=== PATIENT | female | born 1985 | race Caucasian/White ===

== ENCOUNTER 2022-08-01 08:04 | Emergency (ER) | payer BC, SELFPAY ==
[2022-08-01 08:12] VITALS: BP 151/86; PULSE 111; RESP 20; TEMP 36.5; O2SAT 100
--- NOTE | 2022-08-01 08:27 | ED.GENADULT ---
HPI - General Adult General Chief complaint: Upper Respiratory Infection Stated complaint: Cough Source: patient Mode of arrival: ambulatory Limitations: no limitations History of Present Illness HPI narrative: Patient presents for evaluation of cough for the last 3 weeks. She states her symptoms were getting better and then worse in the last 2 days. Cough is nonproductive. She denies any fever, chills, shortness of breath, leg swelling, nausea, vomiting, diarrhea. She is currently , 36 weeks gestation. . She saw her OBGYN two days ago. She has been using benadryl and cough drops. She is wondering if any other therapies are available. She does not smoke. No personal hx of COVID. She has received COVID vaccination. 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 No additional complaints or concerns. Related Data Home Medications Medication Instructions Recorded Confirmed albuterol sulfate 90 mcg/actuation inhalation 08/01/22 aerosol inhaler doxylamine 20 mg-pyridoxine 20 mg tablet PO 08/01/22 tablet,immediate and delayed release ([place]) nifedipine 30 mg tablet,extended mg PO 08/01/22 release 24 hr Allergies Allergy/AdvReac Type Severity Reaction Status Date / Time No Known Allergies Allergy Verified 08/01/22 08:24 Review of Systems Review of Systems: CONSTITUTIONAL: Denies fever, chills, or sweats. EYES: Denies visual changes, redness, or discharge. ENT: Denies rhinorrhea, congestion, sore throat, or otalgia. CARDIOVASCULAR: Denies chest pain, palpitations, or edema. RESPIRATORY: Reports cough. Denies dyspnea. GASTROINTESTINAL: Denies abdominal pain, nausea, vomiting, or diarrhea. GENITOURINARY: Denies dysuria or hematuria. SKIN: Denies rash or itching. MUSCULOSKELETAL: Denies back pain, joint pain, or myalgia. NEUROLOGIC: Denies headache, numbness, dizziness, or weakness. PSYCHIATRIC: Denies anxiety or depression. [facility] Past Medical History Medical History Gestational hypertension Obesity Surgical History Surgical History History of cholecystectomy History of tonsillectomy Family History Family History Father Seizures Meningitis Social History Social History Smoking status: Never smoker Substance use: never Additional living arrangements comments: Lives with boyfriend Gender identity (if verbalized by the patient): Female Sexual Orientation (if Verbalized by the Patient): Straight or Heterosexual Spiritual care concerns: No Exam Narrative: GENERAL: Well-appearing, well-nourished, and in no acute distress. HEAD: Normocephalic, atraumatic. EYES: PERRLA and EOMI. ENT: Nares clear, no rhinorrhea or epistaxis. Mucous membranes moist. Oropharynx without tonsillar hypertrophy exudate or other lesions. Bilateral TMs pearly lieberman nonbulging NECK: Supple. No adenopathy or masses. No carotid bruits or JVD CHEST: Cough present on exam. Clear to auscultation. No respiratory distress. No wheezes rales or rhonchi HEART: Regular rate and rhythm. No murmur heard. Normal peripheral pulses. ABDOMEN: Soft, nontender, nondistended, normal active bowel sounds. EXTREMITIES: Normal range of motion. No edema. SKIN: Warm, dry, no rash. NEURO: No focal deficits. Alert and oriented x3. PSYCH: Normal mood and affect. Course Course Emergency Course: This is a 36-year-old female who presented for evaluation of respiratory symptoms. COVID and influenza were negative. HR normalized on my exam. Doubt PE-has normal HR, no leg swelling and O2 sats 100%. She may use guaifenesin for cough and should reserve dextromethorphan for severe symptoms. Should not use liquid formulation of either medication due to potential to elevate BP
== END 2022-08-01 08:53 | disposition home or self-care (01) ==
PROVIDERS: Emergency Provider Nurse Practitioner
DX: B34.9 Viral infection, unspecified (principal); Z20.822 Contact with and (suspected) exposure to COVID-19
CPT/HCPCS: 87426; 87804; 99213; C9803; G0463

== ENCOUNTER 2023-05-17 14:46 | Emergency (ER) | payer BC, OTHER, SELFPAY ==
[2023-05-17 14:56] VITALS: BP 142/85; PULSE 83; RESP 16; TEMP 36.5; O2SAT 98
--- NOTE | 2023-05-17 15:14 | ED.GENADULT ---
HPI - General Adult General Chief complaint: Extremity Injury, Lower Stated complaint: Left Ankle Pain Source: patient Mode of arrival: ambulatory Limitations: no limitations History of Present Illness HPI narrative: 37-year-old female presented for complaint of left ankle pain today. She sources intermittent ankle pain when she wears sandals, stating she wore them today and due to being overweight the ankle feels unstable and has pain. 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 Denies bruising, swelling, discoloration, numbness, tingling or weakness. Related Data Allergies Allergy/AdvReac Type Severity Reaction Status Date / Time No Known Allergies Allergy Verified 08/01/22 08:24 Review of Systems Review of Systems: CONSTITUTIONAL: Denies body aches, fever, chills EYES: Denies visual changes ENT: Denies rhinorrhea, congestion CARDIOVASCULAR: Denies chest pain, palpitations, or edema. RESPIRATORY: Denies cough or dyspnea. GASTROINTESTINAL: Denies abdominal pain, nausea, vomiting, or diarrhea. SKIN: Denies rash, itching, or wounds. MUSCULOSKELETAL: reports left ankle pain Denies back pain, or myalgia. NEUROLOGIC: Denies headache, numbness, tingling, or weakness. PSYCH: Denies depression or anxiety. All systems reviewed & are unremarkable except as noted in HPI and below PMFSH Past Medical History Medical History Gestational hypertension Obesity Surgical History Surgical History History of cholecystectomy History of tonsillectomy Family History Family History Father Seizures Meningitis Social History Social History Smoking status: Never smoker Substance use: never Additional living arrangements comments: Lives with boyfriend Gender identity (if verbalized by the patient): Female Sexual Orientation (if Verbalized by the Patient): Straight or Heterosexual Spiritual care concerns: No Comments At time of signature, I have reviewed and agree with nursing past medical, surgical, social and family history unless otherwise noted. Please see nursing chart for further information. There is no relevant family history pertinent to the presenting complaint Exam Narrative: GENERAL: Well-appearing NECK: Supple. CHEST: Speaks in full sentences. No respiratory distress. HEART: Regular rate and rhythm. Normal and equal peripheral pulses. EXTREMITIES: Reports pain to left lateral/posterior ankle; Left ankle and foot have normal strength and sensation, normal range of motion with flexion/extension/rotation, denies pain with movement. No ecchymosis, No point tenderness. No open wounds, or obvious deformity; alignment normal, pulse palpable and equal bilaterally, skin warm, dry, pink. Capillary refill less than 3 seconds. SKIN: Warm, dry, no rash. NEURO: Alert and oriented x3. PSYCH: Normal mood and affect Course Course Emergency Course: Patient is aware of diagnosis, understands and agrees to treatment plan. Anticipatory guidance given. Patient agrees to follow-up as directed and is aware of reasons to seek care at the emergency department. Portions of this record may have been created with voice recognition software Level of Care: Express Care Visit Vital Signs Vital signs: Vital Signs Temperature 97.7 F 05/17/23 14:56 Pulse Rate 83 05/17/23 14:56 Respiratory Rate 16 05/17/23 14:56 Blood Pressure 142/85 H 05/17/23 14:56 Pulse Oximetry 98 05/17/23 14:56 Oxygen Delivery Room Air 05/17/23 14:56 Temperature 97.7 F 05/17/23 14:56 Pulse Rate 83 05/17/23 14:56 Respiratory Rate 16 05/17/23 14:56 Blood Pressure 142/85 H 05/17/23 14:56 Pulse Oximetr
== END 2023-05-17 15:23 | disposition home or self-care (01) ==
PROVIDERS: Emergency Provider Nurse Practitioner Family
DX: M25.572 Pain in left ankle and joints of left foot (principal); E66.9 Obesity, unspecified
CPT/HCPCS: 99212; G0463

== ENCOUNTER 2023-06-29 12:57 | Emergency (ER) | payer OTHER, SELFPAY ==
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
[2023-06-29 13:19] VITALS: BP 150/72; PULSE 92; RESP 20; TEMP 36.8; O2SAT 100
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
== END 2023-06-29 14:15 | disposition home or self-care (01) ==
PROVIDERS: Emergency Provider Nurse Practitioner Family
DX: M79.18 Myalgia, other site (principal)
CPT/HCPCS: 72072; 73030; 81025; 99214; G0463

== ENCOUNTER 2025-03-27 18:04 | Emergency (ER) | payer BC, SELFPAY ==
--- OUTSIDE RECORDS SUMMARY | 2025-03-27 18:07 | XMS_ITS | Encounter Summary ---
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
--- OUTSIDE RECORDS SUMMARY | 2025-03-27 18:07 | XMS_ITS | Clinical Summary ---
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
--- OUTSIDE RECORDS SUMMARY | 2025-03-27 18:07 | XMS_ITS | Continuity of Care Document ---
Author Organization [facility] Address [address] [place] [address] Phone Care Team Providers Care Offshore Wind Operations Manager Name Role Phone Jared LEMUS, C Unavailable Unavailable Allergies, Adverse Reactions, Alerts Substance Reaction Status Criticality Penicillins family hx of Active No Information acetaminophen Nausea / Vomiting Active No Inform ation OXYCODONE HCL Nausea / Vomiting Active No Inform ation Medications Medication Instructions Dosage Effective Dates (start - stop) Status Comments Prozac 10 mg capsule take 1 capsule by ORAL route every day 10 MG - Active Ortho Tri-Cyclen (28) 0.18/0.215/0.25 mg-35 mcg(28) Tab take 1 tablet by oral route every day 1.00 tablet - Active albuterol sulfate HFA 90 mcg/actuation Aerosol Inhaler inhale 2 puff by Inhalation route every 4 - 6 hours as needed 2 puff - Active Procedures Procedure Date OFFICE/OUTPATIENT VISIT, EST OFFICE/OUTPATIENT VISIT, EST OFFICE/OUTPATIENT VISIT, EST PREV VISIT, EST, AGE 18-39 OFFICE/OUTPATIENT VISIT, EST OFFICE/OUTPATIENT VISIT, EST ROUTINE VENIPUNCTURE PREV VISIT, EST, AGE 18-39 OFFICE/OUTPATIENT VISIT, EST OFFICE/OUTPATIENT VISIT, EST IMMUNIZATION ADMIN FLU VACCINE AGE 3 & OVER, IM PREV VISIT, EST, AGE 18-39 OFFICE/OUTPATIENT VISIT, EST Urinalysis Nonauto W/O Scope OFFICE/OUTPATIENT VISIT, EST OFFICE/OUTPATIENT VISIT, EST PREV VISIT, EST, AGE 18-39 OFFICE/OUTPATIENT VISIT, EST PERCUTANEOUS NEEDLE BIOPSY, MUSCLE/ASP J OFFICE CONSULTATION ROUTINE VENIPUNCTURE OFFICE/OUTPATIENT VISIT, EST OFFICE/OUTPATIENT VISIT, EST OFFICE/OUTPATIENT VISIT, EST ROUTINE VENIPUNCTURE TB INTRADERMAL TEST TB INTRADERMAL TEST Ther/Proph/Diag Inj, Sc/Im IMMUNIZATION ADMIN H PAPILLOMA VACC 3 DOSE IM OFFICE/OUTPATIENT VISIT, EST IMMUNIZATION ADMIN H PAPILLOMA VACC 3 DOSE IM PREV VISIT, EST, AGE 18-39 IMMUNIZATION ADMIN H PAPILLOMA VACC 3 DOSE IM OFFICE/OUTPATIENT VISIT, EST OFFICE/OUTPATIENT VISIT, EST PREV VISIT, EST, AGE 18-39 IMMUNIZATION ADMIN TDAP VACCINE >7 IM Advance Directives Directive Yes / No Effective Date File Name No Information Encounters Encounter Description Practice Location Reason(s) For Visit Diagnoses Date Provider Providers Copied on Encounter [facility], [address], [place], [place], [facility], tel:[phone] [facility] No Information 4 Jared Martinez [address] [facility], [address], [place], [place], [facility], . tel:[phone] OFFICE/OUTPAT IENT VISIT, EST [facility], [address], [place], [address], [place] tel:[phone] [facility] chronic conditions (chief complaint)N urse Comments (chief complaint) Obesity, MorbidChroni c Fatigue Syndrome 3 Dave Deshpande [facility] [address], [place], [address], [place]. tel:[phone] [facility], [address] [address], [place], [address], [place] tel:[phone] [facility] Tobacco Abuse, History of 3 Stephen Quiñones. [address], [address], [place], [address], [place]. tel:[phone] OFFICE/OUTPAT IENT VISIT, EST [facility], [address] [place] [address] [address] [address], [place], [address], [place] tel:[phone] [facility] f/u per AT (chief complaint)c hronic conditions (chief complaint) DEPRESSIVE DISORDER, NOSFatigue / Malaise 3 Dave Deshpande [facility] [address], [place], [address], [place]. tel:[phone] [facility], [address] [place] [address], [place], [address], [place] tel:[phone] [facility] anxiety (chief complaint) Chronic Fatigue Syndrome 3 [address], [place], [address], [place]. tel:[phone] PREV VISIT, EST, AGE 18-39 [facility], [address] [address], [place], [address], [place] tel:[phone] [facility] preventive exam (chief complaint) Gynecologica l Examination 2 Jared C. [address], [address], [place], [address], [place]. tel:[phone] OFFICE/OUTPAT IENT VISIT, EST [facility], [address] [address], [place], [address], tel: [phone] [facility] knee pain (chief complaint) Pain, Knee Dec- 5 2 PauchMcNama ra Vanesa. [address], [address], [place], [place], [id number], . tel: [phone] OFFICE/OUTPAT IENT VISIT, EST [facility], [address] [address], [place], [address], [place] tel: [phone] [facility] cyst (chief complaint) DERMATITIS NOSGynecolog ical Examination Aug- 1 Nick Rima. [address], [address] [facility], [place], [place], [id number], . tel: [phone] PREV VISIT, EST, AGE 18-39 [facility], [address] [address], [place], [address], [place] tel: [phone] [facility] physical exam (chief complaint) Gynecologica l ExaminationL UMP OR MASS IN BREASTDepres sionObesity 1 Nick Rima[address], [address] [facility], [place], [place], [id number], . tel: [phone] OFFICE/OUTPAT IENT VISIT, EST [facility], [address] [address], [place], [address], [place] tel: [phone] [facility] depression (chief complaint) Fatigue / MalaiseDepre ssion Dec- 1 Nick Rima[address], [address] [facility], [place], [place], [id number], [place]. tel: [phone] OFFICE/OUTPAT IENT VISIT, EST [facility], [address] [address], [place], [address], [place] tel: [phone] [facility] medical problem update (chief complaint)a nxiety (chief complaint) DepressionOb esity Oct- 1 Nick Petersona. [address] [facility] , [address] [facility], [place], [place], [id number], . tel:[phone] [facility], [address] [address], [place], [address], tel:[phone] [facility] DYSMENORRHEA Dec-0 2 0 No Information PREV VISIT, EST, AGE 18-39 [facility], [address] [place] [address], [place], [address], tel:[phone] [facility] CPX (chief complaint) Gynecologica l ExaminationI nfluenza VaccineObesi tyOther malaise and fatigue Jul-0 0 No Information OFFICE/OUTPAT IENT VISIT, EST [facility], [address] [place] [address], [place], [facility], tel:[phone] [facility] discuss wt loss (chief complaint) Other malaise and fatigue Feb- 0 Wil Cotter. [address] [place] [address], [facility], . tel:[phone] [facility], [address] [place] [address], [place], [facility], [place] tel:[phone] [facility] Nephrolithia sis, Kidney StoneNephrol ithiasis, Kidney Stone Nov-2 0 Wil Cyndee. [address] [place] [address], [address], [place]. tel:[phone] OFFICE/OUTPAT IENT VISIT, EST [facility], [address] [place] [address], [place], [facility], tel:[phone] [facility] hip pain (chief complaint)U TI (chief complaint) Pain, Low Back Nov- 0 Wil Cyndee. [address] [place] [address], [address], [place]. tel:[phone] OFFICE/OUTPAT IENT VISIT, EST [facility], [address] [place] [address], [place], [address], [place] tel:[phone] [facility] knee pain (chief complaint)s ore throat (chief complaint)b lood in stool (chief complaint) Pain, KneeBleeding , RectalAcute pharyngitis 9 Wil Cyndee. [address] [place] [address], [address], [place]. tel:[phone] [facility], [address] [place] [address], [place], [address], [place] tel:[phone] [facility] No Information 9 Jared C. [address] [place] [address], [address], [place], [address], [place]. tel:[phone] PREV VISIT, EST, AGE 18-39 [facility], [address] [place] [address], [place], [address], [place] tel:[phone] [facility] PAP test (chief complaint) Gynecologica l Examination 9 No Information OFFICE/OUTPAT IENT VISIT, EST [facility], [address] [facility] [address] [facility], [place], [address], [place] tel:[phone] [facility] [place] No Information 9 Maniar Anoli. [address] [facility], [address] [facility], [place], [place], [id number], [place]. tel:[phone] Referring Provider: Vanesa Parekh, [address] [place] [address] [address], [place], [address]. tel:[phone] OFFICE CONSULTATION [facility] [address] [facility] [address], [place], [address], [place] tel:[phone] [facility] [place] No Information Blair-2 3-200 9 Jess Christian. [address], [address] [facility], [place], [place], [id number], [place]. tel:[phone] Referring Provider: Vanesa Parekh, [address], [place], [address]. tel:[phone] OFFICE/OUTPAT IENT VISIT, EST [facility], [address] [address], [place], [address], [place] tel:[phone] [facility] swollen lymph nodes (chief complaint) Lymphadenopa thy, Swollen Glands Blair-1 8-200 9 Dina Alexis. [address], [address], [place], [place], [id number], [place]. tel: [phone] OFFICE/OUTPAT IENT VISIT, EST [facility], [address] [address], [place], [address], [place] tel: [phone] [facility] lump (chief complaint) Lymphadenopa thy, Swollen Glands Apr-2 8-200 9 No Information OFFICE/OUTPAT IENT VISIT, EST [facility], [address] [facility] [address] [address], [place], [address], [place] tel:[phone] [facility] lump (chief complaint) Lymphadenopa thy, Swollen Glands Apr-0 6-200 9 Dina Alexis. [address], [address], [place], [place], [id number], [place]. tel: [phone] [facility], [address] [facility], [place], [address], [place] tel:[phone] [facility] No Information Oct- 8-200 9 Jared C. [address], [address] [facility], [place], [facility], . tel: [phone] [facility], [address] [place] [address], [place], [facility], tel: [phone] [facility] No Information Fe 9 Jared C. [address], [address] [facility], [place], [facility], . tel: [phone] [facility], [address] [place] [address], [place], [facility], tel: [phone] [facility] No Information 8 Jared C. [address] [place] [address], [address] [facility], [place], [facility], . tel: [phone] OFFICE/OUTPAT IENT VISIT, EST [facility], [address] [place] [address], [place], [facility], tel: [phone] [facility] abdominal discomfort (chief complaint) HEARTBURN 8 No Information [facility], [address] [place] [address], [place], [facility], tel: [phone] [facility] No Information 8 Jared C. [address] [place] [address], [address], [place], [facility], [place]. tel: [phone] PREV VISIT, EST, AGE 18-39 [facility], [address] [place] [address] [address] [address], [place], [facility], [place] tel: [phone] [facility] PAP test (chief complaint) Routine gynecologica l examination 8 No Information OFFICE/OUTPAT IENT VISIT, EST [facility], [address] [place] [address] [address] [address], [place], [facility], tel: [phone] [facility] No Information Nov-0 5-200 7 Jared C. [address], [address] [facility], [place], [facility], . tel:[phone] OFFICE/OUTPAT IENT VISIT, EST [facility], [address] [facility], [place], [facility], tel:[phone] [facility] No Information Blair-0 5-200 7 Jared C. [address], [address] [facility], [place], [facility], . tel:[phone] PREV VISIT, EST, AGE 18-39 [facility], [address] [address], [place], [facility], tel:[phone] [facility] No Information Mar-3 0-200 7 Jared C. [address], [address] [facility], [place], [facility], . tel:[phone] [facility], [address] [place] [address], [address] [address], [place], [facility], tel:[phone] [place] [address] No Information 1 8-199 1 Nurse Services. [address] [place] [address], [address] [place] [address], . tel:[phone] [facility], [address] [place] [address], [address] [address], [place], [facility], tel:[phone] [facility] [place] No Information 6-198 9 Nurse Services. [address] [place] [address], [address] [place] [address], . tel:[phone] [facility], [address] [place] [address], [address] [address], [place], [facility], tel:[phone] [facility] [place] No Information May-2 7-198 8 Nurse Services. [address] [place] [address], [address] [place] [address], . tel:[phone] [facility], [address] [place] [address], [address], [address] [place] [address] tel:[phone] [facility] [place] No Information 2 8-198 8 Nurse Services. [address] [place] [address], [id number], . tel:[phone] [facility], [address] [place] [address], [address], [facility], tel:[phone] [facility] [place] No Information Nov- 0-198 7 Nurse Services. [address] [place] [address], [id number], . tel:[phone] [facility], [address] [place] [address], [address], [facility], tel:[phone] [facility] [place] No Information 7-198 6 Nurse Services. [address] [place] [address], [id number], . tel:[phone] [facility], [address] [place] [address], [address], [facility], tel:[phone] [facility] [place] No Information 9-198 6 Nurse Services. [address] [place] [address], [id number], . tel:[phone] Family History Family Member Type Diagnosis Age At Onset Mother Problem (finding) hypertension Paternal grandfather Problem (finding) coronary arteri osclerosis Maternal grandmother Problem (finding) supranuclear pa lsey Sister Problem (finding) attention defi cit hyperactivity disorder Problem (finding) Family history of Cancer -cervical Father Problem (finding) seizure disorder Mother Problem (finding) depression Problem (finding) Family history of Cance r -breast Problem (finding) Family history of Diabetes mellitus Problem (finding) Family history of depression with suicide attemp Immunizations Vaccine Date Status Comments Flu (split) (3 yrs or older) administered Source: New Immunization Record HPV administered Source: New Imm unization Record HPV administered Source: New Imm unization Record HPV administered Source: New Imm unization Record Td (adult) administered Source: New Imm unization Record TDAP VACCINE >7 IM administered Source: N ew Immunization Record meningococcal administered Source: New Im munization Record hep B (ped/adol, 3 dose) administered Bianca rce: New Immunization Record hep B (ped/adol, 3 dose) administered Bianca rce: New Immunization Record hep B (ped/adol, 3 dose) administered Bianca rce: New Immunization Record Oral Polio administered Source: New Imm unization Record DPT/DTaP administered Source: New Imm unization Record MMR administered Source: New Imm unization Record Hib administered Source: New Imm unization Record Oral Polio administered Source: New Imm unization Record DPT/DTaP administered Source: New Imm unization Record Oral Polio administered Source: New Imm unization Record DPT/DTaP administered Source: New Imm unization Record DPT/DTaP administered Source: New Imm unization Record Oral Polio administered Source: New Imm unization Record DPT/DTaP administered Source: New Imm unization Record Payers Payer name Insurance type Covered alliance party ID Authoriza tion(s) [facility] [id number] Social History Type Description Quantity Date Captured Comments Sex Female Smoking Status No Information Chief Complaint And Reason For Visit No Information Reason For Referral Reason For Referral No Information Plan Of Treatment Date Type Action Status Goal Breast exam. Due on 012 due Goal PAP. Due on due Goal Preventive Exam. Due on due Goal PUBLIC HEALTH TRAINING ASSISTANT exam. Due on due Goal Diabetes Screening. Due on D due History Of Present Illness Encounter Date Complaint History Of Prese nt Illness No Information Functional Status Date Functional Assessmen t No Information Instructions Date Instruction Additional Infor mation Dietary counseling Related to Mo rbid obesity, BMI 40 or more Decrease caloric intake Related to Morbid obesity, BMI 40 or more Assessments Type Assessment Date No Information Patient Care Teams Name Effective Dates (start - stop) Status Members No Information
--- OUTSIDE RECORDS SUMMARY | 2025-03-27 18:07 | XMS_ITS | Encounter Summary ---
Author Organization [facility] Healthcare Address [address] [place] [address] Care Team Providers Care Publicity Consultant Name Role Phone Emily Mcgill NP Primary Care Provider [phone] Reason for Visit * Reason Onset Date Comments Medical Question/Miscellaneous 03/25/2025 Encounter Details Date Type Department Care Team (Late st Contact Info) Description 03/25/2025 Telephone [facility] [address] [place] [address] Emily Mcgill NP [address] [place] [address] Medical Question/Miscellaneous Social History Tobacco Use Types Packs/Day Years Used Date Smoking Tobacco: Never Smokeless Tobacco: Never [facility] Utilities Answer Date Recorded In the past 12 months has [facility] electric, gas, oil, or water [employer] threatened to shut off services in your home? No 11/14/2023 Humiliation, Afraid, Rape, and Kick questionnair e Answer Date Recorded Within the last year, have y ou been afraid of your partner or ex-partner? No 11/14/2023 Within the last year, have y ou been humiliated or emotionally abused in other ways by your partner or ex-partner? No Within the last year, have y ou been kicked, hit, slapped, or otherwise physically hurt by your partner or ex-partner? No 11/14/2023 Within the last year, have y ou been raped or forced to have any kind of sexual activity by your partner or ex-partner? No 11/14/2023 Social Connection and Isolat ion Panel [NHANES] Answer Date Recorded In a typical week, how many times do you talk on the phone with family, friends, or neighbors? More than three times a week 11/14/2023 How often do you get togethe r with friends or relatives? More than three times a week 11/14/2023 How often do you attend chur ch or caodaism services? Never 11/14/2023 Do you belong to any clubs o r organizations such as taoism groups, unions, fraternal or athletic groups, or school groups? No 11/14/2023 How often do you attend meet ings of the clubs or organizations you belong to? Never 11/14/2023 Are you , , di vorced, , never , or living with a partner? Living with partner 11/14/2023 AUDIT-C Answer Date Recorded Q1: How often do you have a drink containing alcohol? Never 08/02/2024 Q2: How many drinks containi ng alcohol do you have on a typical day when you are drinking? Patient does not drink Q3: How often do you have si x or more drinks on one occasion? Never 08/02/2024 Overall Financial Resource Strain (CARDIA) Answe r Date Recorded How hard is it for you to pa y for the very basics like food, housing, medical care, and heating? Not hard at all 11/14/2023 PHQ-2 Answer Date Recorded PHQ-2 Total Score (If total score is 3 or more points, staff should administer the PHQ-9) 0 10/02/2024 [facility] - Occupational Stress Questionnaire Answer Date Recorded Do you feel stress - tense, restless, nervous, or anxious, or unable to sleep at night because your mind is troubled all the time - these days? To some extent 11/14/2023 Exercise Vital Sign Answer Date Recorde d On average, how many days pe r week do you engage in moderate to strenuous exercise (like a brisk walk)? 0 days 11/14/2023 On average, how many minutes do you engage in exercise at this level? 0 min 11/14/2023 Hunger Vital Sign Answer Date Recorded Within the past 12 months, y ou worried that your food would run out before you got the money to buy more. Never true 11/14/19 24 Within the past 12 months, t he food you bought just didn't last and you didn't have money to get more. Never true 11/14/2023 PRAPARE - Transportation Answer Date Re corded In the past 12 months, has l ack of transportation kept you from medical appointments or from getting medications? No 10/27 In the past 12 months, has l ack of transportation kept you from meetings, work, or from getting things needed for daily living? No 11/14/2023 Housing Stability Vital Sign Answer Humble e Recorded In the last 12 months, was t here a time when you were not able to pay the mortgage or rent on time? No 11/14/2023 In the last 12 months, how many places have you lived? 1 11/14/2023 In the last 12 months, was t here a time when you did not have a steady place to sleep or slept in a [place] [facility] (including now)? No 11/14/2023 Personal Safety Answer Date Recorded Have you ever been in or are you currently in a harmful physical or emotional relationship or is someone making you feel afraid or unsafe? Denies 07/11/2024 Comments No Sex and Gender Information Value Date Recorded Sex Assigned at Not on file Legal Sex Female 8:29 AM CDT Gender Identity Not on file Sexual Orientation Not on file documented as of this encounter Miscellaneous Notes * Telephone Encounter - Meryl Winkler MA - 03/25/2025 1:52 PM CDT Noted, Thanks * Telephone Encounter - Jaqui Bird - 03/25/2025 12:44 PM CDT Medical Question/Miscellaneous Caller???s Concern: Patient asking if she needs to continue Physical Therapy. AC reviewed notes andtold patient that the note from [facility] is not on file. Patient is going to contact [facility] to have them fax the last visit notes to KINDRA Mcgill for her review. Does message need to be routed? Yes-FYI Only documented in this encounter Plan of Treatment Not on file documented as of this encounter Visit Diagnoses Not on filedocumented in this encounter Care Teams Publicity Consultant Relationship Specialty Start Date End Date Emily Mcgill NP PCP - General Family Medicine 11/14/23 documented as of this encounter
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
--- OUTSIDE RECORDS SUMMARY | 2025-03-27 18:09 | XMS_ITS | Continuity of Care Document ---
Author Organization [facility] Address 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 tel:[phone] OFFICE/OUTPAT IENT VISIT, EST [facility], [address], [place], [address], [place] tel:[phone] [facility] chronic conditions (chief complaint)N urse Comments (chief complaint) Obesity, MorbidChroni c Fatigue Syndrome 3 Dave Deshpande [facility] [address], [place], [address], [place]. tel:[phone] [facility], [address] [address], [place], [address], [place] tel:[phone] [facility] Tobacco Abuse, History of 3 Stephen Quiñones. [address], [address], [place], [address], [place]. tel:[phone] OFFICE/OUTPAT IENT VISIT, EST [facility], [address] [place] [address] [place] [address], [place], [address], [place] tel:[phone] [facility] f/u per AT (chief complaint)c hronic conditions (chief complaint) DEPRESSIVE DISORDER, NOSFatigue / Malaise 3 Dave Deshpande [facility] [address], [place], [address], [place]. tel:[phone] [facility], [address] [place] [address], [place], [address], [place] tel:[phone] [facility] anxiety (chief complaint) Chronic Fatigue Syndrome 3 Tang Durb[address], [place], [address], [place]. tel:[phone] PREV VISIT, EST, AGE 18-39 [facility], [address] [address], [place], [address], [place] tel:[phone] [facility] preventive exam (chief complaint) Gynecologica l Examination 2 Jared C. [address], [address], [place], [address], [place]. tel:[phone] OFFICE/OUTPAT IENT VISIT, EST [facility], [address] [address], [place], [address], tel: [phone] [facility] knee pain (chief complaint) Pain, Knee Dec- 5 2 PauchMcNama ra Vanesa. [address], [address] [place] [facility], [place], [place], [id number], . tel: [phone] OFFICE/OUTPAT IENT VISIT, EST [facility], [address] [address], [place], [address], [place] tel: [phone] [facility] cyst (chief complaint) DERMATITIS NOSGynecolog ical Examination Aug- 1 Nick Rima. [address], [address] [facility], [place], [place], [id number], . tel: [phone] PREV VISIT, EST, AGE 18-39 [facility], [address] [address], [place], [address], [place] tel: [phone] [facility] physical exam (chief complaint) Gynecologica l ExaminationL UMP OR MASS IN BREASTDepres sionObesity 1 Nick Rima[address], [address] [facility], [place], [place], [id number], . tel: [phone] OFFICE/OUTPAT IENT VISIT, EST [facility], [address] [address], [place], [address], [place] tel: [phone] [facility] depression (chief complaint) Fatigue / MalaiseDepre ssion Dec- 1 Nick [address]ima[address], [address] [facility], [place], [place], [id number], [place]. tel: [phone] OFFICE/OUTPAT IENT VISIT, EST [facility], [address] [address], [place], [address], [place] tel: [phone] [facility] medical problem update (chief complaint)a nxiety (chief complaint) DepressionOb esity Oct- 1 Nick Petersona. [address] [facility] , [address] [facility], [place], [place], [id number], . tel:[phone] [facility], [address] [address], [place], [address], tel:[phone] [facility] DYSMENORRHEA Dec-0 2 0 No Information PREV VISIT, EST, AGE 18-39 [facility], [address] [place] [address], [place], [address], tel:[phone] [facility] CPX (chief complaint) Gynecologica l ExaminationI nfluenza VaccineObesi tyOther malaise and fatigue Jul-0 0 No Information OFFICE/OUTPAT IENT VISIT, EST [facility], [address] [place] [address], [place], [facility], tel:[phone] [facility] loss (chief complaint) Other malaise and fatigue Feb- 0 Wil Cotter. [address] [place] [address], [facility], . tel:[phone] [facility], [address] [place] [address], [place], [facility], [place] tel:[phone] [facility] Nephrolithia sis, Kidney StoneNephrol ithiasis, Kidney Stone Nov-2 0 Wil Cyndee. [address] [place] [address], [address], [place]. tel:[phone] OFFICE/OUTPAT IENT VISIT, EST [facility], [address] [place] [address], [place], [facility], tel:[phone] [facility] hip pain (chief complaint)U TI (chief complaint) Pain, Low Back Nov- 0 Wil Cyndee. [address] [place] [address], [address], [place]. tel:[phone] OFFICE/OUTPAT IENT VISIT, EST [facility], [address] [place] [address], [place], [address], [place] tel:[phone] [facility] knee pain (chief complaint)s ore throat (chief complaint)b lood in stool (chief complaint) Pain, KneeBleeding , RectalAcute pharyngitis 9 Wil Cyndee. [address] [place] [address], [address], [place]. tel:[phone] [facility], [address] [place] [address], [place], [address], [place] tel:[phone] [facility] No Information 9 Jared C. [address] [place] [address], [address], [place], [address], [place]. tel:[phone] PREV VISIT, EST, AGE 18-39 [facility], [address] [place] [address], [place], [address], [place] tel:[phone] [facility] PAP test (chief complaint) Gynecologica l Examination 9 No Information OFFICE/OUTPAT IENT VISIT, EST [facility], [address] [facility] [address] [facility], [place], [address], [place] tel:[phone] [facility] [place] No Information 9 Maniar Anoli. [address] [facility], [address] [facility], [place], [place], [id number], [place]. tel:[phone] Referring Provider: Vanesa Parekh, [address] [place] [address] [address] [facility], [place], [address]. tel:[phone] OFFICE CONSULTATION [facility], [address] [facility] [address], [place], [address], [place] tel:[phone] [facility] [place] No Information Blair-2 3-200 9 Jess Christian. [address], [address] [facility], [place], [place], [id number], [place]. tel:[phone] Referring Provider: Vanesa Parekh, [address] [facility], [place], [address]. tel:[phone] OFFICE/OUTPAT IENT VISIT, EST [facility], [address] [address], [place], [address], [place] tel:[phone] [facility] swollen lymph nodes (chief complaint) Lymphadenopa thy, Swollen Glands Blair-1 8-200 9 Dina Alexis. [address], [address], [place], [place], [id number], [place]. tel: [phone] OFFICE/OUTPAT IENT VISIT, EST [facility], [address] [address], [place], [address], [place] tel: [phone] [facility] lump (chief complaint) Lymphadenopa thy, Swollen Glands Apr-2 8-200 9 No Information OFFICE/OUTPAT IENT VISIT, EST [facility], [address] [facility] [place] [address], [place], [address], [place] tel:[phone] [facility] lump (chief complaint) Lymphadenopa thy, Swollen Glands Apr-0 6-200 9 Dina Alexis. [address], [address] [facility], [place], [place], [id number], [place]. tel: [phone] [facility], [address] [facility], [place], [address], [place] tel:[phone] [facility] No Information Oct- 8-200 9 Jared C. [address], [address] [facility], [place], [facility], . tel: [phone] [facility], [address] [place] [address], [place], [facility], tel: [phone] [facility] No Information Fe [address] [facility], [address] [facility], [place], [facility], . tel: [phone] [facility], [address] [place] [address], [place], [facility], tel: [phone] [facility] No Information 8 Jared C. [address] [place] [address], [address], [place], [facility], . tel: [phone] OFFICE/OUTPAT IENT VISIT, EST [facility], [address] [place] [address], [place], [facility], tel: [phone] [facility] abdominal discomfort (chief complaint) HEARTBURN 8 No Information [facility], [address] [place] [address], [place], [facility], tel: [phone] [facility] No Information 8 Jared C. [address] [place] [address], [address], [place], [facility], [place]. tel: [phone] PREV VISIT, EST, AGE 18-39 [facility], [address] [place] [address] [place] [address], [place], [facility], [place] tel: [phone] [facility] PAP test (chief complaint) Routine gynecologica l examination 8 No Information OFFICE/OUTPAT IENT VISIT, EST [facility], [address] [place] [address] [place] [address], [place], [facility], tel: [phone] [facility] No Information Nov-0 5-200 [address] [facility], [address] [facility], [place], [facility], . tel:[phone] OFFICE/OUTPAT IENT VISIT, EST [facility], [address] [facility], [place], [facility], tel:[phone] [facility] No Information Blair-0 5-200 [address] [facility], [address] [facility], [place], [facility], . tel:[phone] PREV VISIT, EST, AGE 18-39 [facility], [address] [address], [place], [facility], tel:[phone] [facility] No Information Mar-3 0-200 [address] [facility], [address] [facility], [place], [facility], . tel:[phone] [facility], [address] [place] [address], [address] [address], [place], [facility], tel:[phone] [place] [address] No Information 1 8-199 1 Nurse Services. [address] [place] [address], [address] [place] [address], . tel:[phone] [facility], [address] [place] [address], [address] [address], [place], [facility], tel:[phone] [facility] No Information 6-198 9 Nurse Services. [address] [place] [address], [address] [place] [address], . tel:[phone] [facility], [address] [place] [address], [address] [address], [place], [facility], tel:[phone] [facility] No Information May-2 7-198 8 Nurse Services. [address] [place] [address], [address] [place] [address], . tel:[phone] [facility], [address] [place] [address], [address], [address] [place] [address] tel:[phone] [facility] No Information 2 8-198 8 Nurse Services. [address] [place] [address], [id number], . tel:[phone] [facility], [address] [place] [address], [address], [facility], tel:[phone] [facility] No Information Nov- 0-198 7 Nurse Services. [address] [place] [address], [id number], . tel:[phone] [facility], [address] [place] [address], [address], [facility], tel:[phone] [facility] No Information 7-198 6 Nurse Services. [address] [place] [address], [id number], . tel:[phone] [facility], [address] [place] [address], [address], [facility], tel:[phone] [facility] No Information 9-198 6 Nurse Services. [address] [place] [address], [id number], . tel:[phone] Family History Family Member Type Diagnosis Age [...] Record Payers Payer name Insurance type Covered green party ID Authoriza tion(s) [facility] [id number] Social History Type Description Quantity Date Captured Comments Sex Female Smoking Status No Information Chief Complaint And Reason For Visit No Information Reason For Referral Reason For Referral No Information Plan Of Treatment Date Type Action Status Goal Diabetes Screening. 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 Due on due Goal Preventive Exam. Due on due Goal PAP. Due on due Goal Breast exam. Due on 012 due History Of Present Illness Encounter Date [...]
[2025-03-27 18:14] VITALS: BP 171/98; PULSE 99; RESP 16; TEMP 36.6; O2SAT 100
--- NOTE | 2025-03-27 18:32 | ED.NAVMDI ---
HPI - Nausea/Vomiting/Diarrhea General Chief complaint: Nausea/Vomiting/Diarrhea Stated complaint: Threw up blood Time Seen by Provider: 03/27/25 18:20 Source: patient and RN notes reviewed Mode of arrival: ambulatory Limitations: no limitations History of Present Illness HPI Narrative: Patient presents today complaining of 1 episode of emesis prior to arrival that had some blood streaking in it. Patient states she has a stress puker and was feeling nauseated after work. Her asked her if she was going to vomit, and that was the only stimulant she needed to start vomiting. States she has had episodes of vomiting with blood in the past, most notably all through a previous . States her nausea has resolved. Denies any fever or abdominal pain. She did take a dose of Pepto-Bismol prior to arrival. Related Data Home Medications ?Medication ?Instructions ?Recorded ?Confirmed ?Last Taken ?Type No Home Medications 06/29/23 06/29/23 Unknown History Allergies Allergy/AdvReac Type Severity Reaction Status Date / Time Penicillins Allergy Other Verified 06/29/23 13:48 PMFSH Past Medical History Medical History Gestational hypertension Obesity Surgical History Surgical History History of cholecystectomy History of tonsillectomy Family History Family History Father Seizures Meningitis Social History Social History Smoking status: Never smoker Substance use: never Additional living arrangements comments: Lives with boyfriend Gender identity (if verbalized by the patient): Female Sexual Orientation (if Verbalized by the Patient): Straight or Heterosexual Spiritual care concerns: No Comments At time of signature, I have reviewed and agree with nursing past medical, surgical, social and family history unless otherwise noted. Please see nursing chart for further information. There is no relevant family history pertinent to the presenting complaint Exam Narrative: GENERAL: Well-appearing, well-nourished, and in no acute distress. HEAD: Normocephalic, atraumatic. EYES: EOMI. No redness or drainage. Conjunctivae normal. ENT: Mucous membranes pink and moist. Throat normal. Uvula midline. NECK: Normal AROM. CHEST: No respiratory distress. Clear to auscultation. HEART: Regular rate and rhythm. No murmur appreciated. ABDOMEN: Soft, nontender, nondistended, normal active bowel sounds. EXTREMITIES: Normal range of motion. No edema. SKIN: Warm, dry, no rash. Capillary refill normal. Normal skin turgor. NEURO: No focal deficits. Alert and oriented x3. Gait steady. PSYCH: Normal affect. No signs of depression or anxiety. Course Course Level of Care: Express Care Visit Vital Signs Vital signs: Vital Signs Temperature 98 F 03/27/25 18:14 Pulse Rate 99 03/27/25 18:14 Respiratory Rate 16 03/27/25 18:14 Blood Pressure 171/98 H 03/27/25 18:14 Pulse Oximetry 100 03/27/25 18:14 Oxygen Delivery Room Air 03/27/25 18:14 Temperature 98 F 03/27/25 18:14 Pulse Rate 99 03/27/25 18:14 Respiratory Rate 16 03/27/25 18:14 Blood Pressure 171/98 H 03/27/25 18:14 Pulse Oximetry 100 03/27/25 18:14 Oxygen Delivery Room Air 03/27/25 18:14 Reviewed MDM - Nausea/Vomiting/Diarrhea MDM Narrative Medical decision making narrative: Patient is 39-year-old female presenting with 1 episode of emesis with small amount of blood prior to arrival. Patient states that she stress vomited today but wanted to come in for evaluation. She is no longer nauseated. She has had blood in her emesis several times before, including many times while she was previously . She is not exhibiting any abdominal pain, abdominal tenderness, fever, esophageal pain, sore throat, or any other symptoms that would suggest she requires transfer to the ER for further evaluation. Vital signs stable. Strict ED precautions given. Differential Diagnosis Differential diagnosis: Likely food poisoning, gastroenteritis and other (Stress-induced vomiting, esophagitis) Critical Care Time Critical Care Time Critical Care Time: No Discharge Plan Discharge Clinical Impression: Vomiting Qualifiers: Vomiting type: hematemesis Nausea presence: unspecified Qualified Code(s): K92.0 - Hematemesis Patient Disposition: Home Condition: Stable Instructions: Acute Nausea and Vomiting (DC) Additional Instructions: Please keep an eye on your symptoms through the night, and go to the ER immediately with any worsening symptoms such as abdominal pain, fever, persistent vomiting. Follow-up with your PCP with any additional concerns. Your blood pressure was elevated above 120/80 today at Urgent Care. This puts you above the threshold for follow up. Please schedule a followup visit with your personal physician as soon as possible, for further evaluation and treatment. Even blood pressure exceeding 120/80 may indicate pre-hypertension. Patient Language: Turkish Prescriptions: No Action No Home Medications Follow-up/Referrals: Poncho,MD Douglas [Primary Care Provider] - Time of Disposition: 18:32
== END 2025-03-27 18:33 | disposition home or self-care (01) ==
PROVIDERS: Emergency Provider Nurse Practitioner; PCP Hospitalist
DX: K92.0 Hematemesis (principal); E66.9 Obesity, unspecified; Z68.44 Body mass index [BMI] 60.0-69.9, adult
CPT/HCPCS: 99211; G0463